=== PATIENT | female | born 1950 | race Caucasian/White ===

== ENCOUNTER 2019-10-11 09:45 | Outpatient (CLI) | payer MEDICARE, OTHER, SELFPAY ==
--- NOTE | 2019-10-11 11:32 | MR_ITS ---
WS: [id number] MRI BRAIN WITH HIGH-RESOLUTION IMAGING THROUGH THE INTERNAL AUDITORY CANALS WITHOUT AND WITH CONTRAST HISTORY: DIZZINESS / GIDDINESS, right-sided ear pain for 2 months. COMPARISON: 04/28/2007 and 10/30/2014 TECHNIQUE: Multiplanar, multisequence imaging is performed through the brain. Additional 3 mm imaging performed in multiple planes through the internal auditory canal. Postcontrast imaging with 17 ml's of Prohance. No acute intracranial hemorrhage, midline shift, edema or mass effect. Mild atrophy and chronic microvascular ischemic disease. No prior infarcts. Mild progression of chron ic microvascular ischemic changes since 2014. No inferior displacement of cerebellar tonsils. Ventricles and extra-axial spaces are normal. No inferior displacement of cerebellar tonsils. Clivus and pituitary gland are normal. Internal and external auditory canals: Unremarkable. Cranial nerves VII and VIII complexes: Unremarkable. No enhancement or mass. Cerebellopontine angles: Normal. Paranasal sinuses: Extensive mucoperiosteal thickening in the LEFT maxillary sinus with mild enhancem ent. Septation with mucoperiosteal thickening in the superior RIGHT frontal sinus. Mastoid air cells: Prior RIGHT mastoidectomy. Postsurgical changes are stable Calvarium and scalp: Normal. Visualized jena of Jones and dural venous sinuses demonstrate no abnormality. MR/MR iac's wo/w con* [id number] IMPRESSION: 1. Normal internal auditory canals. 2. Prior RIGHT mastoidectomy, stable over multiple prior years. 3. LEFT maxillary sinusitis. 4. Mild microvascular ischemic disease, minimal progression since 2014.
[2019-10-11 12:31] LABS: Blood Urea Nitrogen 9 mg/dL (8-23); Glomerular Filtration Rate 71.3 mL/min (90-130)
== END 2019-10-11 09:46 | disposition home or self-care (01) ==
LOC: RADWPI 09:51
PROVIDERS: Family Provider Nurse Practitioner Family; PCP Nurse Practitioner Family; Referring Provider Nurse Practitioner Family; Visit Provider Specialist
DX: E04.1 Nontoxic single thyroid nodule (principal); R42 Dizziness and giddiness; R13.19 Other dysphagia; H70.11 Chronic mastoiditis, right ear; J32.0 Chronic maxillary sinusitis; I99.8 Other disorder of circulatory system
CPT/HCPCS: 70553; 82565; 84520; A9579

== ENCOUNTER → 2019-11-05 15:02 | Outpatient (BNVA) | payer MEDICARE, OTHER, SELFPAY | PROVIDERS: Family Provider Nurse Practitioner Family; PCP Nurse Practitioner Family; Visit Provider Nurse Practitioner Family | DX: R53.1 Weakness (principal); G56.00 Carpal tunnel syndrome, unspecified upper limb; M25.519 Pain in unspecified shoulder; R20.0 Anesthesia of skin | CPT/HCPCS: 36416; 82962 ==

== ENCOUNTER → 2019-11-19 08:08 | Outpatient (BNVA) | payer MEDICARE, OTHER, SELFPAY | PROVIDERS: Family Provider Nurse Practitioner Family; PCP Nurse Practitioner Family; Visit Provider Nurse Practitioner Family | DX: Z13.220 Encounter for screening for lipoid disorders (principal); Z13.1 Encounter for screening for diabetes mellitus | CPT/HCPCS: 80048; 80061 ==

== ENCOUNTER → 2019-11-27 09:52 | Outpatient (BNVA) | payer MEDICARE, OTHER, SELFPAY | PROVIDERS: Family Provider Nurse Practitioner Family; PCP Nurse Practitioner Family; Visit Provider Nurse Practitioner Family | DX: E78.2 Mixed hyperlipidemia (principal); R73.09 Other abnormal glucose | CPT/HCPCS: 80076; 83036 ==

== ENCOUNTER → 2019-12-05 07:57 | Outpatient (BNVA) | payer MEDICARE, OTHER, SELFPAY | PROVIDERS: Family Provider Nurse Practitioner Family; PCP Nurse Practitioner Family; Referring Provider Nurse Practitioner Family; Visit Provider Specialist | DX: R20.2 Paresthesia of skin (principal) | CPT/HCPCS: 95908 ==

== ENCOUNTER → 2020-02-22 11:02 | Outpatient (BNVA) | payer MEDICARE, OTHER, SELFPAY | PROVIDERS: Family Provider Nurse Practitioner Family; PCP Nurse Practitioner Family; Visit Provider Nurse Practitioner Family | DX: E78.5 Hyperlipidemia, unspecified (principal); I10 Essential (primary) hypertension | CPT/HCPCS: 80053; 80061 ==

== ENCOUNTER → 2020-07-14 14:13 | Outpatient (BNVA) | payer MEDICARE, OTHER, SELFPAY | PROVIDERS: Family Provider Nurse Practitioner Family; PCP Nurse Practitioner Family; Visit Provider Nurse Practitioner Family | DX: Z11.59 Encounter for screening for other viral diseases (principal); Z03.818 Encounter for observation for suspected exposure to other biological agents ruled out | CPT/HCPCS: 87635 ==

== ENCOUNTER 2020-07-21 15:15 | Outpatient (CLI) | payer MEDICARE, OTHER, SELFPAY ==
--- NOTE | 2020-07-21 15:30 | CT_ITS ---
WS: [id number] CT HEAD NONCONTRAST HISTORY: headache TECHNIQUE: Contiguous axial imaging performed through the brain in 2.5 mm imaging. Bone and soft tiss ue windows. Sagittal and coronal reformats reviewed. All CT scans at [facility] use at ast one of these dose optimization techniques: automated exposure control; mA and/or kV adjustment pe r patient size (includes targeted exams where dose is matched to clinical indication); or iterative r econstruction. DLP: 992.04 mGycm COMPARISON: 06/25/2008 No acute intracranial hemorrhage, midline shift or mass effect. No atrophy or prior infarcts or herniation. Dense calcification measuring 1.6 cm in the RIGHT tempor al region. Present on several prior examinations with no enhancement. May be calcified meningioma. Sl owly increased in size since 2007. Ventricles: Normal size with no hydrocephalus. Paranasal sinuses: As visualized are clear. Mastoid air cells: Prior RIGHT mastoidectomy. Calvarium and scalp: Mild hyperostosis frontalis interna. CT/CT head wo con* [id number] IMPRESSION: 1. Stable noncontrast head CT. No acute intracranial findings. 2. Prior RIGHT mastoidectomy.
== END 2020-07-21 15:16 | disposition home or self-care (01) ==
LOC: RADWPI 15:19
PROVIDERS: Family Provider Nurse Practitioner Family; PCP Nurse Practitioner Family; Visit Provider Nurse Practitioner Family
DX: R51.9 Headache, unspecified (principal)
CPT/HCPCS: 70450

== ENCOUNTER → 2020-07-24 10:59 | Outpatient (BNVA) | payer MEDICARE, OTHER, SELFPAY | PROVIDERS: Family Provider Nurse Practitioner Family; PCP Nurse Practitioner Family; Visit Provider Nurse Practitioner Family | DX: I10 Essential (primary) hypertension (principal) | CPT/HCPCS: 80053; 80061 ==

== ENCOUNTER → 2020-08-26 16:44 | Outpatient (BNVA) | payer MEDICARE, OTHER, SELFPAY | PROVIDERS: Family Provider Nurse Practitioner Family; PCP Nurse Practitioner Family; Visit Provider Nurse Practitioner Family | DX: E55.9 Vitamin D deficiency, unspecified (principal); F32.9 Major depressive disorder, single episode, unspecified; R05 Cough | CPT/HCPCS: 82306 ==

== ENCOUNTER → 2021-01-19 11:04 | Outpatient (BNVA) | payer MEDICARE, OTHER, SELFPAY | PROVIDERS: Family Provider Nurse Practitioner Family; PCP Nurse Practitioner Family; Visit Provider Nurse Practitioner Family | DX: E10.621 Type 1 diabetes mellitus with foot ulcer (principal); L89.609 Pressure ulcer of unspecified heel, unspecified stage; R07.89 Other chest pain; I10 Essential (primary) hypertension; R53.83 Other fatigue; R00.1 Bradycardia, unspecified; E78.5 Hyperlipidemia, unspecified | CPT/HCPCS: 80053; 80061; 84443 ==

== ENCOUNTER 2021-04-21 13:10 | Outpatient (CLI) | payer MEDICARE, OTHER, SELFPAY ==
--- NOTE | 2021-04-21 13:15 | CT_ITS ---
WS: [id number] CT HEAD TECHNIQUE: Noncontrast CT of the head obtained from the skullbase to the vertex. CLINICAL INFORMATION: R51.9 - Headache, unspecified COMPARISON: CT July 21, 2020 DLP: 992.[address] scans at [facility] use at least one of these dose optimization techniques: automat ed exposure control; mA and/or kV adjustment per patient size (includes targeted exams where dose is matched to clinical indication); or iterative reconstruction. FINDINGS: No evidence of intracranial hemorrhage or mass effect. Ventricular system and basal cisterns are ratliff nt. Mild small vessel changes with [id number] parenchymal volume loss. Stable calcified meningi luther overlying the operculum along the lateral right frontal lobe measuring 15 mm is unchanged. Additi onal stable 6 mm extra-axial calcification along the right middle cranial fossa may represent an maylin tional small calcified meningioma unchanged.Normal posterior fossa. No hydrocephalus. Left mastoid ai r cells are well aerated. Paranasal sinuses are well aerated. Prior postoperative changes right masto idectomy. Mucosal thickening mastoid tip. Benign dural calcification along the falx. CT/CT head wo con* [id number] IMPRESSION: 1. No evidence of intracranial hemorrhage or mass effect. 2. Stable 15 mm calcified meningioma overlying the right lateral frontal lobe. 3. Additional stable 6 mm extra-axial calcification along the right middle crap game box person nial fossa may represent an additional small calcified meningioma unchanged. 4. Mild small vessel changes with mild/moderate parenchymal volume loss. 5. Prior postoperative changes right partial mastoidectomy. 6. No significant changes from previous.
== END 2021-04-21 13:11 | disposition home or self-care (01) ==
PROVIDERS: PCP Nurse Practitioner Family; Visit Provider Nurse Practitioner Family
DX: R51.9 Headache, unspecified (principal); D32.0 Benign neoplasm of cerebral meninges
CPT/HCPCS: 70450

== ENCOUNTER → 2021-09-09 11:06 | Outpatient (BNVA) | payer MEDICARE, OTHER, SELFPAY | PROVIDERS: PCP Nurse Practitioner Family; Visit Provider Nurse Practitioner Family | DX: I10 Essential (primary) hypertension (principal); M79.606 Pain in leg, unspecified; R53.83 Other fatigue | CPT/HCPCS: 80053; 80061; 82550; 84443 ==

== ENCOUNTER → 2021-10-01 08:56 | Outpatient (BNVA) | payer MEDICARE, OTHER, SELFPAY | PROVIDERS: PCP Nurse Practitioner Family; Visit Provider Nurse Practitioner Family | DX: R39.9 Unspecified symptoms and signs involving the genitourinary system (principal) | CPT/HCPCS: 81000; 87086 ==

== ENCOUNTER → 2021-10-19 11:07 | Outpatient (BNVA) | payer MEDICARE, OTHER, SELFPAY | PROVIDERS: PCP Nurse Practitioner Family; Visit Provider Surgery | DX: Z11.52 Encounter for screening for COVID-19 (principal) | CPT/HCPCS: 87635 ==

== ENCOUNTER 2021-10-29 16:24 | Outpatient (CLI) | payer MEDICARE, OTHER, SELFPAY ==
--- NOTE | 2021-10-29 14:30 | XR_ITS ---
WS: [id number] LUMBAR SPINE: 3 VIEWS TECHNIQUE: AP, lateral and L5-S1 spot. HISTORY: M54.50 - Low back pain, unspecified COMPARISON: None available. Moderate degenerative LEFT curvature lumbar spine with asymmetric disc narrowing along the RIGHT curv ature. L2 retrolisthesis by 3 mm. L3 anterolisthesis by 3 mm L4 anterolisthesis by 8 mm. Disc spaces are markedly narrowed with moderate facet joint arthritis throughout the lumbar spine mos t significant at L4-5 and L5-S1. No acute fractures. Mild narrowing of the SI joints. Sclerotic focus over the LEFT ilium measures 10 mm. Prior cholecystectomy. Mild atherosclerosis aorta. XR/XR lumbar spine 2-3V* [id number] IMPRESSION: 1. Moderate degenerative levoscoliosis lumbar spine with advanced disc space n arrowing and facet arthritis. 2. No fractures.
== END 2021-10-29 16:25 | disposition home or self-care (01) ==
LOC: RAD 16:33
PROVIDERS: PCP Nurse Practitioner Family; Visit Provider Nurse Practitioner Family
DX: M54.50 Low back pain, unspecified (principal); M41.86 Other forms of scoliosis, lumbar region
CPT/HCPCS: 72100

== ENCOUNTER → 2021-11-03 08:41 | Outpatient (BNVA) | payer MEDICARE, OTHER, SELFPAY | PROVIDERS: PCP Nurse Practitioner Family; Visit Provider Nurse Practitioner Family | DX: R05.9 Cough, unspecified (principal); U07.1 COVID-19 | CPT/HCPCS: 87635 ==

== ENCOUNTER → 2022-04-12 09:07 | Outpatient (BNVA) | payer MEDICARE, OTHER, SELFPAY | PROVIDERS: PCP Nurse Practitioner Family; Visit Provider Nurse Practitioner Family | DX: R53.83 Other fatigue (principal); E55.9 Vitamin D deficiency, unspecified; K59.00 Constipation, unspecified; I10 Essential (primary) hypertension | CPT/HCPCS: 80053; 80061; 82306; 82607; 84443; 85025 ==

== ENCOUNTER → 2023-01-17 11:47 | Outpatient (BNVA) | payer MEDICARE, OTHER, SELFPAY | PROVIDERS: PCP Nurse Practitioner Family; Visit Provider Nurse Practitioner Family | DX: M10.9 Gout, unspecified (principal); R53.83 Other fatigue; R60.9 Edema, unspecified | CPT/HCPCS: 84550; 85025 ==

== ENCOUNTER → 2024-01-09 15:30 | Outpatient (BNVA) | payer MEDICARE, OTHER, SELFPAY | PROVIDERS: PCP Nurse Practitioner Family; Visit Provider Nurse Practitioner Family | DX: M79.605 Pain in left leg (principal); E55.9 Vitamin D deficiency, unspecified; I10 Essential (primary) hypertension; L03.116 Cellulitis of left lower limb | CPT/HCPCS: 80053; 80061; 82306 ==

== ENCOUNTER → 2025-06-06 10:50 | Outpatient (BNVA) | payer MEDICARE, OTHER, SELFPAY | PROVIDERS: PCP Nurse Practitioner Family; Visit Provider Nurse Practitioner Family | DX: I10 Essential (primary) hypertension (principal); R53.83 Other fatigue; E55.9 Vitamin D deficiency, unspecified | CPT/HCPCS: 80053; 80061; 82306; 85025 ==

== ENCOUNTER 2025-06-13 13:08 | Outpatient (CLI) | payer MEDICARE, OTHER, SELFPAY ==
--- NOTE | 2025-06-13 13:30 | XR_ITS ---
WS: [id number] SCREENING DEXA SCAN [employer] CLINICAL INFORMATION: M81.0 - Age-related osteoporosis without current patholog... COMPARISON: None. FINDINGS: The L1-L4 bone mineral density measures 1.493 g/cm2. This corresponds to a T score score of 2.6 and Z score of 3.5. Left femoral neck bone mineral density measures 0.942 g/cm2. This corresponds to a T score of -0.5 and Z score of 0.5. Right femoral neck bone mineral density measures 0.982 g/cm2. This corresponds to a T score -0.2of and Z score of 0.8. Mean femoral neck bone mineral density measures 0.962 g/cm2. This corresponds to a T score of -0.4 and Z score of 0.7. XR/XR DEXA axial skeleton* [id number] IMPRESSION: Normal bone mineralization. Patient's FRAX calculated 10 year probability for major osteoporotic fracture i s 9.3% and osteoporotic hip fracture is 1.46%.
== END 2025-06-13 13:09 | disposition home or self-care (01) ==
LOC: RAD 13:09
PROVIDERS: PCP Nurse Practitioner Family; Visit Provider Nurse Practitioner Family
DX: Z12.39 Encounter for other screening for malignant neoplasm of breast (principal); M81.0 Age-related osteoporosis without current pathological fracture
CPT/HCPCS: 77063; 77067; 77080

== ENCOUNTER → 2025-09-23 16:32 | Outpatient (BNVA) | payer MEDICARE, OTHER, SELFPAY | PROVIDERS: PCP Nurse Practitioner Family; Visit Provider Nurse Practitioner Family | DX: E55.9 Vitamin D deficiency, unspecified (principal); I10 Essential (primary) hypertension | CPT/HCPCS: 80053; 80061; 82306 ==

== ENCOUNTER 2025-09-25 11:30 | Outpatient (CLI) | payer MEDICARE, OTHER, SELFPAY ==
--- NOTE | 2025-09-25 11:39 | XR_ITS ---
WS: [id number] Right knee, 3 views, 09/25/2025 Clinical Data: M25.561 - Pain in right knee Comparison: None. Findings: The arthroplasty components are in good position. No loosening or periprosthetic fractures are seen. The soft tissues are normal. XR/XR knee RT 3V* [id number] Impression: Right knee arthroplasty.
== END 2025-09-25 11:31 | disposition home or self-care (01) ==
LOC: RAD 11:33
PROVIDERS: PCP Nurse Practitioner Family; Visit Provider Nurse Practitioner Family
DX: M25.561 Pain in right knee (principal)
CPT/HCPCS: 73562